=== PATIENT | female | born 1985 | race Asian ===

== ENCOUNTER 2017-05-09 21:21 | Emergency (ER) | payer OTHER ==
[2017-05-09 21:26] VITALS: BP 132/80
== END 2017-05-09 22:03 | disposition home or self-care (01) ==
LOC: ED 21:21
DX: S60.812A Abrasion of left wrist, initial encounter (principal); W54.0XXA Bitten by dog, initial encounter; Y93.89 Activity, other specified; Y92.89 Other specified places as the place of occurrence of the external cause; Y99.8 Other external cause status
CPT/HCPCS: 90715